=== PATIENT | female | born 1965 | race African-American/Black ===

== ENCOUNTER 2021-12-31 15:37 | Emergency (ER) | payer MEDICAID, OTHER ==
[~2021-12-31] VITALS: Ht 175.3 cm; Wt 73.0 kg
[2021-12-31 15:39] VITALS: BP 115/82
[2021-12-31] MEDS ORDERED: KETOROLAC 60MG/2ML VIAL IM ONE (16:15)
[2021-12-31] MEDS ORDERED: IBUP-2029 MT (17:10)
== END 2021-12-31 17:40 | disposition home or self-care (01) ==
LOC: ER 15:37
DX: M79.18 Myalgia, other site (principal); U07.1 COVID-19; J45.909 Unspecified asthma, uncomplicated; Z88.6 Allergy status to analgesic agent; Z87.891 Personal history of nicotine dependence
CPT/HCPCS: 71045; 96372; 99283; J1885

== ENCOUNTER 2022-05-14 16:11 | Emergency (ER) | payer OTHER ==
[~2022-05-14] VITALS: Ht 175.3 cm; Wt 72.0 kg
[~2022-05-14 16:11] MED LIST: IBUP-2029 MT
[2022-05-14] MEDS ORDERED: KETOROLAC 30MG/ML VIAL IV STA (19:45)
[2022-05-14] MEDS ORDERED: ONDANSETRON HCL 4MG/2ML INJ IV STA (19:45)
[2022-05-14] MEDS ORDERED: SODIUM CHLORIDE 0.9% 1,000 ML IV ONE (19:45)
[2022-05-14 20:15] LABS: BASOPHILS % 0.6 % (0.0-2.0); EOSINOPHILS % 0.5 % (0.0-5.0); HEMATOCRIT. 43.8 % (36.0-48.0); HEMOGLOBIN. 14.6 g/dL (12.0-16.0); LYMPHOCYTES % 27.8 % (20.0-50.0); MEAN CORPUSCULAR HEMOGLOBIN 28.4 pg (28.0-32.0); MEAN PLATELET VOLUME 8.8 fl (7.4-10.4); NEUTROPHILS % 63.1 % (40.0-76.0); PLATELET 227 x1000/uL (130-400); RED BLOOD CELL COUNT 5.16 mill/uL (4.2-5.4); RED CELL DISTRIBUTION WIDTH 15.3 % (11.6-14.6)
[2022-05-14 20:32] LABS: CHLORIDE 110 mEq/L (98-107)
[2022-05-14 21:57] LABS: CLARITY URINE CLEAR (CLEAR); COLOR URINE YELLOW (YELLOW); KETONES URINE 1+ (NEGATIVE); LEUKOCYTE ESTERASE URINE NEGATIVE (NEGATIVE); NITRITE URINE NEGATIVE (NEGATIVE); OCCULT BLOOD URINE NEGATIVE (NEGATIVE); PH URINE 5.5 (4.5-8.0); PROTEIN URINE NEGATIVE (NEGATIVE); SPECIFIC GRAVITY URINE 1.011 (1.005-1.030); UROBILINOGEN URINE 0.2 E.U./dL (0.2-1.0)
[2022-05-14] MEDS ORDERED: ONDA4TAB50 MT (22:50)
[2022-05-14] MEDS ORDERED: IBUP-2029 MT (22:50)
[2022-05-14 23:00] VITALS: BP 121/83
== END 2022-05-14 23:06 | disposition home or self-care (01) ==
LOC: ER 16:11
DX: K52.9 Noninfective gastroenteritis and colitis, unspecified (principal); J45.909 Unspecified asthma, uncomplicated; Z88.5 Allergy status to narcotic agent
CPT/HCPCS: 36415; 74176; 80053; 81003; 83690; 85025; 96361; 96374; 96375; 99284; J1885; J2405; J7030

== ENCOUNTER 2024-01-30 15:00 | Inpatient (IN) | payer OTHER ==
[~2024-01-30] VITALS: Ht 175.3 cm; Wt 78.5 kg
[~2024-01-30 15:00] MED LIST changes: +ONDA4TAB50 MT
[2024-01-30 15:40] LABS: BASOPHILS % 0.3 % (0.0-2.0); EOSINOPHILS % 0.2 % (0.0-5.0); HEMOGLOBIN. 14.3 g/dL (12.0-16.0); LYMPHOCYTES % 17.6 % (20.0-50.0); MEAN CORPUSCULAR HEMOGLOBIN 28.1 pg (28.0-32.0); MEAN CORPUSCULAR HGB CONC 32.5 g/dL (31.0-37.0); MEAN CORPUSCULAR VOLUME 86.5 fL (81.0-99.0); MEAN PLATELET VOLUME 7.8 fl (7.4-10.4); MONOCYTES % 8.1 % (2.0-8.0); NEUTROPHILS % 73.8 % (40.0-76.0); PLATELET 362 x1000/uL (130-400); RED BLOOD CELL COUNT 5.09 mill/uL (4.2-5.4); RED CELL DISTRIBUTION WIDTH 15.1 % (11.6-14.6); WHITE BLOOD COUNT 19.6 x1000/uL (4.5-11.0)
[2024-01-30] MEDS: SODIUM CHLORIDE 0.9% 1000ML BAG (SEPSIS BOLUS) IV ONE (15:41)
[2024-01-30] MEDS: METHYLPREDNISOLONE SOD SUCC 125MG/2ML (ACT-O-VIAL) IV ONE (15:44)
[2024-01-30] MEDS: CEFTRIAXONE 1GM/50ML 50 ML IV ONE (15:44)
[2024-01-30] MEDS: ONDANSETRON HCL 4MG/2ML INJ IV STA (15:44)
[2024-01-30] MEDS: ACETAMINOPHEN 325MG TABLET PO STA (15:44)
[2024-01-30 15:48] VITALS: RESP 30
[2024-01-30] MEDS: IPRATROPIUM/ALBUTEROL 0.5-3(2.5)MG/3ML NEB HHN ONE (15:48)
[2024-01-30 15:49] LABS: CARBON DIOXIDE 25 mEq/L (21-32); CHLORIDE 105 mEq/L (98-107); POTASSIUM 3.6 mEq/L (3.5-5.1); SODIUM 139 mEq/L (136-145)
[2024-01-30 15:53] LABS: CREATININE 0.7 mg/dL (0.6-1.0); GLUCOSE 107 mg/dL (70-105); UREA NITROGEN BLOOD 7 mg/dL (9-23)
[2024-01-30 15:54] LABS: LACTATE DEHYDROGENASE 263 IU/L (120-246); LACTIC ACID 2.8 mmol/L (0.4-2.0)
[2024-01-30 15:56] LABS: TROPONIN I HIGH SENSITIVITY 7 ng/L (3.0-34)
[2024-01-30] MEDS: AZITHROMYCIN 500MG/250ML 250 ML IV ONE (16:19)
[2024-01-30 16:39] LABS: INR 1.1; PROTHROMBIN TIME 11.8 sec (9.6-11.0)
[2024-01-30 17:11] LABS: BG BASE EXCESS -3.5 mmol/L (-2.0-2.0); BG CARBOXYHEMOGLOBIN 0.7 % (0.5-1.5); BG FRACTION INSPIRED OXYGEN 50; BG HCO3 ACT 20.6 mmol/L (22.0-26.0); BG OXYHEMOGLOBIN 98.3 % (94.0-97.0); BG PCO2 34.4 mmHg (35.0-45.0); BG PH 7.396 (7.350-7.450); BG PO2 134.7 mmHg (75.0-100.0); BG SAMPLE SITE RIGHT RADIAL; BG TOTAL HEMOGLOBIN 13.2 g/dL (12.0-18.0); BG TOTAL RESPIRATORY RATE 18 b/min; BG VENT MODE MASK - BIPAP
[2024-01-30 17:59] LABS: TROPONIN I HIGH SENSITIVITY 7 ng/L (3.0-34)
[2024-01-30 18:18] LABS: CLARITY URINE CLEAR (CLEAR); COLOR URINE YELLOW (YELLOW); GLUCOSE URINE NEGATIVE (NEGATIVE); KETONES URINE TRACE (NEGATIVE); LEUKOCYTE ESTERASE URINE NEGATIVE (NEGATIVE); NITRITE URINE NEGATIVE (NEGATIVE); OCCULT BLOOD URINE NEGATIVE (NEGATIVE); PH URINE 6.5 (4.5-8.0); PROTEIN URINE NEGATIVE (NEGATIVE); SPECIFIC GRAVITY URINE 1.007 (1.005-1.030); UROBILINOGEN URINE 0.2 E.U./dL (0.2-1.0)
[2024-01-30 18:29] VITALS: BP 126/79; PULSE 92; RESP 22; TEMP 36.8072
[2024-01-30] MEDS ORDERED: CLONIDINE 0.1MG TABLET PO PRN (18:30)
[2024-01-30] MEDS ORDERED: IPRATROPIUM/ALBUTEROL 0.5-3(2.5)MG/3ML NEB NEB PRN (18:30)
[2024-01-30] MEDS ORDERED: ACETAMINOPHEN 325MG TABLET PO PRN (18:30)
[2024-01-30] MEDS ORDERED: DOCUSATE SODIUM 100MG CAPSULE PO PRN (18:30)
[2024-01-30] MEDS ORDERED: GUAIFENESIN 200MG/10ML SUGAR FREE UDC PO PRN (18:30)
[2024-01-30] MEDS ORDERED: ONDANSETRON HCL 4MG/2ML INJ IV PRN (18:30)
[2024-01-30] MEDS ORDERED: NITROGLYCERIN 0.4MG TABLET SL SL PRN (18:30)
[2024-01-30] MEDS ORDERED: MAGNESIUM/ALUMINUM HYDROXIDE/SIMETHICONE 30ML UDC PO PRN (18:30)
[2024-01-30 18:34] VITALS: BP 126/79; PULSE 92; RESP 22; TEMP 36.83628; O2SAT 99
[2024-01-30 20:00] VITALS: BP 118/88; PULSE 73; RESP 21; TEMP 36.22512; O2SAT 100
[2024-01-30 21:48] VITALS: RESP 20
[2024-01-30] MEDS: IPRATROPIUM/ALBUTEROL 0.5-3(2.5)MG/3ML NEB HHN SCH (21:48)
[2024-01-30] MEDS: ASCORBIC ACID 500 MG TABLET PO SCH (21:50)
[2024-01-30] MEDS: ENOXAPARIN 40MG/0.4ML SYR SUBCUT SCH (21:50)
[2024-01-30] MEDS: GUAIFENESIN 600MG ER TABLET PO SCH (21:50)
[2024-01-30] MEDS: METHYLPREDNISOLONE SOD SUCC 125MG/2ML (ACT-O-VIAL) IV SCH (21:53)
[2024-01-30 22:00] VITALS: BP 126/82; PULSE 73; RESP 25; O2SAT 100
[2024-01-30] MEDS: ZOLPIDEM TARTRATE 5MG TABLET PO PRN (22:04)
[2024-01-30 22:11] LABS: IRON 22 ug/dL (50-170)
[2024-01-30 22:12] LABS: TRIGLYCERIDE 89 mg/dL (0-150)
[2024-01-30 22:13] LABS: LDL CHOLESTEROL 82 mg/dL (5-100); TROPONIN I HIGH SENSITIVITY 10 ng/L (3.0-34)
[2024-01-30 22:14] LABS: CHOLESTEROL 156 mg/dL (<200); HDL CHOLESTEROL 60 mg/dL (>65); TOTAL IRON BINDING CAPACITY 213 ug/dl (250-425)
[2024-01-30 22:17] LABS: T4 FREE 1.49 ng/dL (0.89-1.76)
[2024-01-30 22:18] LABS: THYROID STIMULATING HORMONE 0.45 uIU/mL (0.55-4.78)
[2024-01-30 22:19] LABS: FOLIC ACID (FOLATE) SERUM 16.16 ng/mL (>5.38); VITAMIN B12 SERUM 784 pg/mL (211-911)
[2024-01-31] VITALS (18 sets, daily range): BP systolic 93–143; BP diastolic 48–99; PULSE 67–100; RESP 16–33; TEMP 36.22512–36.72516; O2SAT 91–100
[2024-01-31 01:28] LABS: CREATINE KINASE MB FRACTION 1.7 ng/mL (0.5-3.6)
[2024-01-31 06:20] LABS: CHLORIDE 107 mEq/L (98-107); SODIUM 138 mEq/L (136-145)
[2024-01-31] MEDS ORDERED: IOHEXOL-350 100 ML BOTTLE ONE (06:20)
[2024-01-31 06:22] LABS: CREATINE KINASE MB FRACTION 1.6 ng/mL (0.5-3.6)
[2024-01-31 06:24] LABS: CARBON DIOXIDE 23 mEq/L (21-32)
[2024-01-31 06:25] LABS: CALCIUM 8.9 mg/dL (8.7-10.4)
[2024-01-31 06:29] LABS: *AMPHETAMINES SCREEN URINE NEGATIVE (NEGATIVE)
[2024-01-31 06:29] LABS: ALANINE AMINOTRANSFERASE < 7 IU/L (10-49)
[2024-01-31 06:30] LABS: *BARBITURATES SCREEN URINE NEGATIVE (NEGATIVE); *BENZODIAZEPINES SCREEN URINE NEGATIVE (NEGATIVE); *COCAINE SCREEN URINE NEGATIVE (NEGATIVE); CANNABINOID URINE SCREEN PRESUMPTIVE POSITIVE (NEGATIVE); ECSTASY MDMA SCREEN URINE NEGATIVE (NEGATIVE); METHADONE URINE SCREEN NEGATIVE (NEGATIVE); OPIATES URINE SCREEN NEGATIVE (NEGATIVE); PHENCYCLIDINE URINE SCREEN NEGATIVE (NEGATIVE)
[2024-01-31 06:30] LABS: CREATININE 0.6 mg/dL (0.6-1.0); GLUCOSE 164 mg/dL (70-105); UREA NITROGEN BLOOD 6 mg/dL (9-23)
[2024-01-31 06:31] LABS: ASPARTATE AMINOTRANSFERASE 11 IU/L (<34); HEMATOCRIT. 38.9 % (36.0-48.0); HEMOGLOBIN. 12.4 g/dL (12.0-16.0); MEAN CORPUSCULAR HEMOGLOBIN 27.7 pg (28.0-32.0); MEAN CORPUSCULAR VOLUME 86.5 fL (81.0-99.0); MEAN PLATELET VOLUME 7.9 fl (7.4-10.4); PLATELET 325 x1000/uL (130-400); RED BLOOD CELL COUNT 4.49 mill/uL (4.2-5.4); RED CELL DISTRIBUTION WIDTH 14.8 % (11.6-14.6); WHITE BLOOD COUNT 12.8 x1000/uL (4.5-11.0)
[2024-01-31 06:32] LABS: ALBUMIN 3.8 g/dL (3.2-4.8); BILIRUBIN TOTAL 0.3 mg/dL (0.1-1.0); PHOSPHORUS 2.9 mg/dL (2.5-4.9); PROTEIN TOTAL 6.6 g/dL (6.0-8.3)
[2024-01-31 07:05] LABS: DIFFERENTIAL COMMENT 1
[2024-01-31] MEDS: ASPIRIN 81MG EC TABLET PO SCH (09:00)
[2024-01-31] MEDS: ZINC SULFATE 220 MG ( 50 ) CAPSULE PO SCH (09:00)
[2024-01-31] MEDS: KETOROLAC 15MG/ML VIAL IV PRN (11:43)
[2024-01-31] MEDS ORDERED: SODIUM CHLORIDE 10% FOR INH 15ML NEB INH NR (12:00)
[2024-01-31 12:53] LABS: LACTIC ACID 3.1 mmol/L (0.4-2.0)
[2024-01-31] MEDS: CEFTRIAXONE 1GM/50ML 50 ML IV SCH (15:00)
[2024-01-31 16:11] LABS: PLATELET ESTIMATE NORMAL
[2024-01-31] MEDS: AZITHROMYCIN 500MG/250ML 250 ML IV SCH (16:21)
[2024-02-01] VITALS (18 sets, daily range): BP systolic 111–140; BP diastolic 67–129; PULSE 70–102; RESP 16–36; TEMP 36.28068–36.9474; O2SAT 92–100
[2024-02-01] MEDS: ACETAMINOPHEN 325MG TABLET PO PRN (10:28)
[2024-02-02] VITALS (18 sets, daily range): BP systolic 99–126; BP diastolic 67–98; PULSE 68–109; RESP 16–34; TEMP 36.28068–36.89184; O2SAT 61–100
[2024-02-02 10:54] LABS: HEMATOCRIT 40.5 % (36.0-48.0); MEAN CORPUSCULAR HEMOGLOBIN 27.6 pg (28.0-32.0); MEAN CORPUSCULAR HGB CONC 32.1 g/dL (31.0-37.0); MEAN CORPUSCULAR VOLUME 85.9 fL (81.0-99.0); PLATELET 346 x1000/uL (130-400); RED BLOOD CELL COUNT 4.72 mill/uL (4.2-5.4); RED CELL DISTRIBUTION WIDTH 15.2 % (11.6-14.6); WHITE BLOOD COUNT 20.2 x1000/uL (4.5-11.0)
[2024-02-02 11:03] LABS: PROTHROMBIN TIME 11.6 sec (9.6-11.0)
[2024-02-02 14:10] LABS: BODY FLUID MONOCYTES 10 %
[2024-02-02 14:15] LABS: LACTATE DEHYDROGENASE 248 IU/L (120-246)
[2024-02-02 14:16] LABS: AMYLASE 60 IU/L (30-118)
[2024-02-02 14:24] LABS: BODY FLUID RBC 8625 /cu mm (0-2000); BODY FLUID WBC 4075 /cu mm (0-200)
[2024-02-02 16:02] LABS: AMYLASE BODY FLUID 63 IU/L
[2024-02-03] VITALS (27 sets, daily range): BP systolic 92–130; BP diastolic 62–103; PULSE 66–98; RESP 17–30; TEMP 35.72508–36.6696; O2SAT 94–100
[2024-02-03 17:10] LABS: BG BASE EXCESS 0.4 mmol/L (-2.0-3.0); BG CARBOXYHEMOGLOBIN 1.2 % (0.5-1.5); BG DEOXYHEMOGLOBIN 1.5 % (0.0-5.0); BG FRACTION INSPIRED OXYGEN 36; BG HCO3 ACT 23.7 mmol/L (21.0-28.0); BG METHEMOGLOBIN 0.3 % (0.5-1.5); BG OXYGEN SATURATION 98.5 % (94.0-98.0); BG PCO2 34.1 mmHg (32.0-45.0); BG PO2 104.4 mmHg (83.0-108.0); BG SAMPLE SITE RIGHT FEMORAL; BG TOTAL HEMOGLOBIN 13.6 g/dL (12.0-16.0); BG VENT MODE NASAL CANNULA
[2024-02-03] MEDS: METHYLPREDNISOLONE SOD SUCC 40MG/ML (ACT-O-VIAL) IV SCH (20:18)
[2024-02-04] VITALS (11 sets, daily range): BP systolic 119–121; BP diastolic 86–107; PULSE 68–86; RESP 18–21; TEMP 35.89176–36.33624; O2SAT 94–100
[2024-02-04] MEDS ORDERED: ALBU6.7H15 INH (10:47)
[2024-02-04] MEDS ORDERED: TIOT18CA3 INH (10:47)
[2024-02-04] MEDS ORDERED: P20 MT (10:47)
[2024-02-04] MEDS ORDERED: AZIT500T8 MT (10:49)
[2024-02-18] MEDS ORDERED: P20 MT (13:16)
[2024-02-18] MEDS ORDERED: FLUT1DIS6 INH (13:16)
[2024-02-18] MEDS ORDERED: LEVO-65 MT (13:16)
== END 2024-02-04 15:31 | disposition home health service (06) | DRG 720 ==
LOC: ER 15:00 → 5EST 16:34 → EDBEDREQ 16:41 → EDBEDREQTM 16:41
PROVIDERS: ADMIT Internal Medicine; ATTEND Internal Medicine
PROC: 5A09357 Assistance with Respiratory Ventilation, Less than 24 Consecutive Hours, Continuous Positive Airway Pressure (ICD-10-PCS; 2024-01-30)
PROC: 5A09357 Assistance with Respiratory Ventilation, Less than 24 Consecutive Hours, Continuous Positive Airway Pressure (ICD-10-PCS; 2024-01-31)
PROC: 5A09357 Assistance with Respiratory Ventilation, Less than 24 Consecutive Hours, Continuous Positive Airway Pressure (ICD-10-PCS; 2024-02-01)
PROC: 0W9B3ZZ Drainage of Left Pleural Cavity, Percutaneous Approach (ICD-10-PCS; principal; 2024-02-02)
PROC: 5A09357 Assistance with Respiratory Ventilation, Less than 24 Consecutive Hours, Continuous Positive Airway Pressure (ICD-10-PCS; 2024-02-03)
DX: A41.9 Sepsis, unspecified organism (principal); J96.01 Acute respiratory failure with hypoxia; E87.4 Mixed disorder of acid-base balance; J44.1 Chronic obstructive pulmonary disease with (acute) exacerbation; J45.901 Unspecified asthma with (acute) exacerbation; J91.8 Pleural effusion in other conditions classified elsewhere; Z20.822 Contact with and (suspected) exposure to COVID-19; J43.9 Emphysema, unspecified; E03.9 Hypothyroidism, unspecified; R07.81 Pleurodynia; F12.10 Cannabis abuse, uncomplicated; F17.200 Nicotine dependence, unspecified, uncomplicated; Z87.01 Personal history of pneumonia (recurrent); Z87.442 Personal history of urinary calculi; Z79.899 Other long term (current) drug therapy
CPT/HCPCS: 32555; 36415; 36600; 71045; 71275; 80048; 80053; 80061; 80305; 81003; 82150; 82375; 82550; 82553; 82607; 82746; 82805; 83036; 83540; 83550; 83605; 83615; 83735; 83880; 84100; 84145; 84439; 84443; 84484; 85025; 85027; 87426; 87804; 93005; 93306; 93970; 94640; 94660; 97161; 97166; 97535; 99291; J0456; J0696; J1650; J1885; J2405; J2919; J2920; J7030; J7131; Q9967

== ENCOUNTER 2024-02-19 10:43 | Inpatient (IN) | payer OTHER ==
[2024-02-19] VITALS (22 sets, daily range): BP systolic 112–147; BP diastolic 75–96; PULSE 98–110; RESP 22–31; TEMP 36.33624–37.0852
[~2024-02-19] VITALS: Ht 175.3 cm; Wt 64.5 kg
[~2024-02-19 10:43] MED LIST changes: +ALBU6.7H15 INH; +FLUT1DIS6 INH; -IBUP-2029 MT; +LEVO-65 MT; -ONDA4TAB50 MT; +P20 MT; +TIOT18CA3 INH
[2024-02-19] MEDS: SODIUM CHLORIDE 0.9% 1000ML BAG (SEPSIS BOLUS) IV ONE (11:27)
[2024-02-19] MEDS: CEFTRIAXONE 2GM/50ML 50 ML IV ONE (11:39)
[2024-02-19] MEDS: MORPHINE SULFATE 4 MG/ML INJ (FOR IV/IM USE) IV STA ×2 (12:02→13:32)
[2024-02-19] MEDS: ONDANSETRON HCL 4MG/2ML INJ IV STA (12:02)
[2024-02-19 12:31] LABS: INR 1.7; PROTHROMBIN TIME 18.2 sec (9.6-11.0)
[2024-02-19] MEDS: IOHEXOL-300 100 ML BOTTLE ONE (13:40)
[2024-02-19] MEDS ORDERED: PIPERACILLIN/TAZO 3.375G/50ML 50 ML IV SCH (14:00)
[2024-02-19] MEDS ORDERED: IPRATROPIUM/ALBUTEROL 0.5-3(2.5)MG/3ML NEB HHN PRN ×2 (14:15→22:00)
[2024-02-19] MEDS ORDERED: ONDANSETRON HCL 4MG/2ML INJ IV PRN ×2 (14:15→22:00)
[2024-02-19] MEDS ORDERED: NALOXONE HCL 0.4MG/ML VIAL IV PRN (14:45)
[2024-02-19] MEDS: PANTOPRAZOLE SODIUM 40 MG/VIAL IV SCH (14:46)
[2024-02-19] MEDS: SODIUM CHLORIDE 0.9% 1,000 ML IV SCH (14:47)
[2024-02-19] MEDS: PIPERACILLIN/TAZO 3.375G/50ML IV NR (14:47)
[2024-02-19 15:31] LABS: HEMATOCRIT. 39.8 % (36.0-48.0); HEMOGLOBIN. 12.6 g/dL (12.0-16.0); MEAN CORPUSCULAR HEMOGLOBIN 27.6 pg (28.0-32.0); MEAN CORPUSCULAR HGB CONC 31.6 g/dL (31.0-37.0); MEAN CORPUSCULAR VOLUME 87.4 fL (81.0-99.0); MEAN PLATELET VOLUME 7.8 fl (7.4-10.4); PLATELET 333 x1000/uL (130-400); RED BLOOD CELL COUNT 4.55 mill/uL (4.2-5.4); RED CELL DISTRIBUTION WIDTH 16.4 % (11.6-14.6); WHITE BLOOD COUNT 17.5 x1000/uL (4.5-11.0)
[2024-02-19 15:32] LABS: CHLORIDE 109 mEq/L (98-107); POTASSIUM 3.6 mEq/L (3.5-5.1); SODIUM 139 mEq/L (136-145)
[2024-02-19 15:33] LABS: CALCIUM 9.1 mg/dL (8.7-10.4); CARBON DIOXIDE 23 mEq/L (21-32)
[2024-02-19] MEDS: MORPHINE SULFATE 2 MG/ML INJ (NOT FOR IM USE) IV PRN (15:33)
[2024-02-19 15:34] LABS: DIFFERENTIAL COMMENT 1
[2024-02-19 15:38] LABS: CREATININE 0.5 mg/dL (0.6-1.0); GLUCOSE 161 mg/dL (70-105); UREA NITROGEN BLOOD 10 mg/dL (9-23)
[2024-02-19 15:40] LABS: ALANINE AMINOTRANSFERASE 7 IU/L (10-49); ALBUMIN 3.7 g/dL (3.2-4.8); ASPARTATE AMINOTRANSFERASE 10 IU/L (<34); BILIRUBIN DIRECT 0.2 mg/dL (<=3.0)
[2024-02-19 15:41] LABS: BILIRUBIN TOTAL 0.5 mg/dL (0.1-1.0); PROTEIN TOTAL 5.8 g/dL (6.0-8.3)
[2024-02-19 15:43] LABS: TROPONIN I HIGH SENSITIVITY < 4 ng/L (3.0-34)
[2024-02-19] MEDS ORDERED: ROCURONIUM BROMIDE 10MG/ML VIAL 5ML IV ONE (16:48)
[2024-02-19] MEDS ORDERED: PROPOFOL 200MG/20ML VIAL IV ONE (16:49)
[2024-02-19] MEDS ORDERED: FENTANYL CITRATE/PF 50MCG/ML 2ML VIAL ONE (16:49)
[2024-02-19] MEDS ORDERED: MIDAZOLAM HCL 2 MG/2 ML VIAL ONE (16:51)
[2024-02-19] MEDS ORDERED: HYDROMORPHONE HCL/PF 1MG/ML INJ IV NR (17:00)
[2024-02-19 17:05] LABS: PLATELET ESTIMATE NORMAL
[2024-02-19 17:06] LABS: ANISOCYTOSIS 1+
[2024-02-19] MEDS ORDERED: SUGAMMADEX SODIUM 200MG/2ML VIAL IV ONE (17:28)
[2024-02-19] MEDS: SUCRALFATE 1G TABLET PO SCH (21:00)
[2024-02-19] MEDS ORDERED: DEXT 5%/0.45% NACL 1000ML 1,000 ML IV SCH (22:00)
[2024-02-19] MEDS: PIPERACILLIN/TAZO 3.375G/50ML 50 ML IV SCH (22:10)
[2024-02-19] MEDS: DEXT 5%/0.45% NACL KCL 20MEQ/L 1,000 ML IV SCH (22:26)
[2024-02-19 23:34] LABS: CLARITY URINE CLEAR (CLEAR); COLOR URINE ORANGE (YELLOW); GLUCOSE URINE NEGATIVE (NEGATIVE); KETONES URINE NEGATIVE (NEGATIVE); LEUKOCYTE ESTERASE URINE NEGATIVE (NEGATIVE); NITRITE URINE NEGATIVE (NEGATIVE); OCCULT BLOOD URINE NEGATIVE (NEGATIVE); PH URINE 5.5 (4.5-8.0); PROTEIN URINE TRACE (NEGATIVE); SPECIFIC GRAVITY URINE 1.028 (1.005-1.030); UROBILINOGEN URINE 0.2 E.U./dL (0.2-1.0)
[2024-02-19 23:56] LABS: TROPONIN I HIGH SENSITIVITY 5 ng/L (3.0-34)
[2024-02-20] VITALS (43 sets, daily range): BP systolic 103–147; BP diastolic 74–93; PULSE 104–119; RESP 23–33; TEMP 36.33624–36.89184; O2SAT 95–100
[2024-02-20] LABS: CREATINE KINASE MB FRACTION < 0.5 ng/mL (0.5-3.6)
[2024-02-20 00:01] LABS: CREATINE KINASE 71 IU/L (34-145); PHOSPHORUS 3.3 mg/dL (2.5-4.9)
[2024-02-20] MEDS: ONDANSETRON HCL 4MG/2ML INJ IV PRN (01:04)
[2024-02-20 01:51] LABS: HEMATOCRIT 43.9 % (36.0-48.0); HEMOGLOBIN 13.9 g/dL (12.0-16.0)
[2024-02-20 04:11] LABS: BACTERIA URINE NONE SEEN; RBC URINE 0-2 /hpf (0-2); SQUAMOUS EPITHELIAL CELL URINE FEW /lpf (RARE/1+)
[2024-02-20 05:14] LABS: HEMATOCRIT. 40.2 % (36.0-48.0); HEMOGLOBIN. 12.7 g/dL (12.0-16.0); MEAN CORPUSCULAR HEMOGLOBIN 27.6 pg (28.0-32.0); MEAN CORPUSCULAR HGB CONC 31.5 g/dL (31.0-37.0); MEAN CORPUSCULAR VOLUME 87.5 fL (81.0-99.0); PLATELET 280 x1000/uL (130-400); RED BLOOD CELL COUNT 4.59 mill/uL (4.2-5.4); RED CELL DISTRIBUTION WIDTH 16.3 % (11.6-14.6); WHITE BLOOD COUNT 17.7 x1000/uL (4.5-11.0)
[2024-02-20 05:18] LABS: CALCIUM 9.2 mg/dL (8.7-10.4); CARBON DIOXIDE 24 mEq/L (21-32); CHLORIDE 108 mEq/L (98-107); POTASSIUM 3.6 mEq/L (3.5-5.1); SODIUM 139 mEq/L (136-145)
[2024-02-20 05:22] LABS: CREATINE KINASE MB FRACTION < 0.5 ng/mL (0.5-3.6); TROPONIN I HIGH SENSITIVITY 7 ng/L (3.0-34)
[2024-02-20 05:23] LABS: CREATININE 0.6 mg/dL (0.6-1.0); GLUCOSE 134 mg/dL (70-105); TRIGLYCERIDE 57 mg/dL (0-150); UREA NITROGEN BLOOD 6 mg/dL (9-23)
[2024-02-20 05:24] LABS: LDL CHOLESTEROL 43 mg/dL (5-100)
[2024-02-20 05:25] LABS: CHOLESTEROL 128 mg/dL (<200); HDL CHOLESTEROL 61 mg/dL (>65)
[2024-02-20 05:26] LABS: CREATINE KINASE 187 IU/L (34-145)
[2024-02-20 06:41] LABS: DIFFERENTIAL COMMENT 1
[2024-02-20] MEDS: SODIUM CHLORIDE 0.9% 1,000 ML IV ONE (09:01)
[2024-02-20] MEDS: ENOXAPARIN 40MG/0.4ML SYR SUBCUT SCH (09:02)
[2024-02-20 10:52] LABS: ANISOCYTOSIS 1+; PLATELET ESTIMATE NORMAL
[2024-02-20] MEDS: MAGNESIUM 2 G PREMIX 50 ML IV NR (11:46)
[2024-02-20] MEDS: MORPHINE SULFATE 2 MG/ML INJ (NOT FOR IM USE) IV PRN (12:48)
[2024-02-21] VITALS (8 sets, daily range): BP systolic 101–132; BP diastolic 72–95; PULSE 101–119; RESP 18–26; TEMP 36.00288–38.72532; O2SAT 92–100
[2024-02-21 09:01] LABS: HEMATOCRIT. 38.6 % (36.0-48.0); HEMOGLOBIN. 12.7 g/dL (12.0-16.0); MEAN CORPUSCULAR HEMOGLOBIN 28.4 pg (28.0-32.0); MEAN CORPUSCULAR HGB CONC 32.9 g/dL (31.0-37.0); MEAN CORPUSCULAR VOLUME 86.5 fL (81.0-99.0); MEAN PLATELET VOLUME 8.1 fl (7.4-10.4); PLATELET 283 x1000/uL (130-400); RED BLOOD CELL COUNT 4.46 mill/uL (4.2-5.4)
[2024-02-21 09:03] LABS: DIFFERENTIAL COMMENT 1
[2024-02-21 09:04] LABS: CHLORIDE 105 mEq/L (98-107); POTASSIUM 3.2 mEq/L (3.5-5.1); SODIUM 136 mEq/L (136-145)
[2024-02-21 09:05] LABS: CARBON DIOXIDE 26 mEq/L (21-32)
[2024-02-21 09:06] LABS: CALCIUM 9.3 mg/dL (8.7-10.4)
[2024-02-21 09:10] LABS: CREATININE 0.6 mg/dL (0.6-1.0); GLUCOSE 102 mg/dL (70-105)
[2024-02-21 09:13] LABS: PHOSPHORUS 2.2 mg/dL (2.5-4.9)
[2024-02-21] MEDS: MORPHINE SULFATE 4 MG/ML INJ (FOR IV/IM USE) IV PRN (09:17)
[2024-02-21 09:30] LABS: UREA NITROGEN BLOOD < 5 mg/dL (9-23)
[2024-02-21] MEDS: THIAMINE HCL 200 MG in SODIUM CHLORIDE 0.9% 98 ML IV SCH (13:33)
[2024-02-21] MEDS: IPRATROPIUM/ALBUTEROL 0.5-3(2.5)MG/3ML NEB HHN SCH (15:46)
[2024-02-21 18:15] LABS: PLATELET ESTIMATE NORMAL
[2024-02-21] MEDS: KCL 20MEQ/100ML PREMIX 100 ML IV NR (18:32)
[2024-02-21] MEDS: SODIUM PHOSPHATE 10 MMOL in DEXT 5% WATER 246.6667 ML IV SCH (18:42)
[2024-02-22] VITALS (10 sets, daily range): BP systolic 101–121; BP diastolic 55–79; PULSE 80–125; RESP 18–22; TEMP 35.66952–39.00312; O2SAT 96–100
[2024-02-22 06:46] LABS: BASOPHILS % 0.2 % (0.0-2.0); EOSINOPHILS % 0.5 % (0.0-5.0); HEMATOCRIT. 36.7 % (36.0-48.0); HEMOGLOBIN. 11.9 g/dL (12.0-16.0); LYMPHOCYTES % 9.7 % (20.0-50.0); MEAN CORPUSCULAR HEMOGLOBIN 27.9 pg (28.0-32.0); MEAN CORPUSCULAR HGB CONC 32.4 g/dL (31.0-37.0); MEAN CORPUSCULAR VOLUME 86.3 fL (81.0-99.0); MEAN PLATELET VOLUME 7.9 fl (7.4-10.4); MONOCYTES % 9.8 % (2.0-8.0); NEUTROPHILS % 79.8 % (40.0-76.0); PLATELET 301 x1000/uL (130-400); RED BLOOD CELL COUNT 4.25 mill/uL (4.2-5.4); RED CELL DISTRIBUTION WIDTH 15.9 % (11.6-14.6)
[2024-02-22 07:00] LABS: CALCIUM 9.1 mg/dL (8.7-10.4); CARBON DIOXIDE 27 mEq/L (21-32); CHLORIDE 104 mEq/L (98-107); POTASSIUM 3.1 mEq/L (3.5-5.1); SODIUM 137 mEq/L (136-145)
[2024-02-22 07:05] LABS: CREATININE 0.6 mg/dL (0.6-1.0); GLUCOSE 122 mg/dL (70-105)
[2024-02-22 07:06] LABS: UREA NITROGEN BLOOD 7 mg/dL (9-23)
[2024-02-22 07:08] LABS: PHOSPHORUS 2.8 mg/dL (2.5-4.9)
[2024-02-22] MEDS: POTASSIUM CHLORIDE 40 MEQ in DEXT 5% WATER 230 ML IV NR (11:55)
[2024-02-22] MEDS: MAGNESIUM 2 G PREMIX 50 ML IV NR (11:55)
[2024-02-23] VITALS (9 sets, daily range): BP systolic 110–125; BP diastolic 72–87; PULSE 97–119; RESP 18–24; TEMP 36.22512–38.00304; O2SAT 89–99
[2024-02-23 12:07] LABS: PROTEIN BODY FLUID 2.1 gm/dL
[2024-02-23 13:13] LABS: BODY FLUID MONOCYTES 6 %
[2024-02-23 13:44] LABS: BODY FLUID WBC 1125 /cu mm (0-200)
[2024-02-23 13:45] LABS: BODY FLUID RBC 17925 /cu mm (0-2000)
[2024-02-23] MEDS: ACETAMINOPHEN 325MG TABLET PO PRN (21:09)
[2024-02-24] VITALS (11 sets, daily range): BP systolic 119–134; BP diastolic 78–92; PULSE 88–123; RESP 14–24; TEMP 36.05844–37.28076; O2SAT 95–100
[2024-02-24 07:04] LABS: BASOPHILS % 0.2 % (0.0-2.0); CARBON DIOXIDE 24 mEq/L (21-32); CHLORIDE 106 mEq/L (98-107); EOSINOPHILS % 0.7 % (0.0-5.0); HEMATOCRIT. 37.2 % (36.0-48.0); HEMOGLOBIN. 11.9 g/dL (12.0-16.0); LYMPHOCYTES % 12.5 % (20.0-50.0); MEAN CORPUSCULAR HEMOGLOBIN 27.7 pg (28.0-32.0); MEAN CORPUSCULAR HGB CONC 32.1 g/dL (31.0-37.0); MEAN CORPUSCULAR VOLUME 86.5 fL (81.0-99.0); MEAN PLATELET VOLUME 8.1 fl (7.4-10.4); MONOCYTES % 14.8 % (2.0-8.0); NEUTROPHILS % 71.8 % (40.0-76.0); PLATELET 246 x1000/uL (130-400); SODIUM 137 mEq/L (136-145); WHITE BLOOD COUNT 16.7 x1000/uL (4.5-11.0)
[2024-02-24 07:10] LABS: CREATININE 0.6 mg/dL (0.6-1.0); GLUCOSE 162 mg/dL (70-105)
[2024-02-24 07:12] LABS: PHOSPHORUS 2.9 mg/dL (2.5-4.9)
[2024-02-24 07:51] LABS: UREA NITROGEN BLOOD < 5 mg/dL (9-23)
[2024-02-24] MEDS: FAMOTIDINE 20MG/2ML VIAL IV SCH (08:37)
[2024-02-25] VITALS (8 sets, daily range): BP systolic 109–132; BP diastolic 60–88; PULSE 58–118; RESP 16–18; TEMP 36.28068–37.2252; O2SAT 95–100
[2024-02-25] MEDS: KETOROLAC 30MG/ML VIAL IV NR (10:09)
[2024-02-25] MEDS: KETOROLAC 30MG/ML VIAL IV PRN (17:38)
[2024-02-25 18:28] LABS: INR 1.2; PARTIAL THROMBOPLASTIN TIME 28.3 sec (23.4-31.0); PROTHROMBIN TIME 13.5 sec (9.6-11.0)
[2024-02-25 19:59] LABS: ALBUMIN 3.5 g/dL (3.2-4.8); PROTEIN TOTAL 5.9 g/dL (6.0-8.3)
[2024-02-26] VITALS (9 sets, daily range): BP systolic 119–135; BP diastolic 82–93; PULSE 83–110; RESP 16–19; TEMP 36.16956–37.39188; O2SAT 96–99
[2024-02-26 10:07] LABS: INR 1.1; PROTHROMBIN TIME 12.4 sec (9.6-11.0)
[2024-02-26] MEDS: MAGNESIUM 1 G PREMIX 100 ML IV NR (14:40)
[2024-02-27] VITALS (7 sets, daily range): BP systolic 100–132; BP diastolic 18–89; PULSE 61–101; RESP 18–19; TEMP 35.89176–37.11408; O2SAT 98–100
[2024-02-27 07:13] LABS: CARBON DIOXIDE 23 mEq/L (21-32)
[2024-02-27 07:14] LABS: CALCIUM 9.5 mg/dL (8.7-10.4)
[2024-02-27 07:18] LABS: CREATININE 0.5 mg/dL (0.6-1.0)
[2024-02-27 07:19] LABS: GLUCOSE 93 mg/dL (70-105)
[2024-02-27 07:20] LABS: UREA NITROGEN BLOOD < 5 mg/dL (9-23)
[2024-02-27 07:21] LABS: BASOPHILS % 0.2 % (0.0-2.0); CHLORIDE 108 mEq/L (98-107); EOSINOPHILS % 0.7 % (0.0-5.0); HEMATOCRIT. 38.6 % (36.0-48.0); HEMOGLOBIN. 12.3 g/dL (12.0-16.0); LYMPHOCYTES % 10.1 % (20.0-50.0); MEAN CORPUSCULAR HEMOGLOBIN 27.4 pg (28.0-32.0); MEAN CORPUSCULAR HGB CONC 31.9 g/dL (31.0-37.0); MEAN CORPUSCULAR VOLUME 85.9 fL (81.0-99.0); MEAN PLATELET VOLUME 8.3 fl (7.4-10.4); MONOCYTES % 8.2 % (2.0-8.0); NEUTROPHILS % 80.8 % (40.0-76.0); PHOSPHORUS 3.4 mg/dL (2.5-4.9); PLATELET 296 x1000/uL (130-400); POTASSIUM 3.8 mEq/L (3.5-5.1); RED BLOOD CELL COUNT 4.49 mill/uL (4.2-5.4); RED CELL DISTRIBUTION WIDTH 16.2 % (11.6-14.6); SODIUM 140 mEq/L (136-145); WHITE BLOOD COUNT 14.4 x1000/uL (4.5-11.0)
[2024-02-27] MEDS ORDERED: NALOXONE HCL 0.4MG/ML VIAL IV PRN (15:00)
[2024-02-27] MEDS: HYDROCODONE/ACETAMINOPHEN 5/325MG TABLET PO PRN (19:51)
[2024-02-27] MEDS: FAMOTIDINE 20MG TABLET PO SCH (22:16)
[2024-02-28] VITALS (7 sets, daily range): BP systolic 91–109; BP diastolic 18–78; PULSE 88–119; RESP 16–19; TEMP 36.05844–37.28076; O2SAT 93–100
[2024-02-28] MEDS ORDERED: ALBUTEROL 6.7GM HFA INHALER INH SCH (15:30)
[2024-02-28] MEDS: IPRATROPIUM/ALBUTEROL 0.5-3(2.5)MG/3ML NEB HHN SCH (20:55)
[2024-02-28] MEDS ORDERED: MEDICATION NOT ON FORMULARY EA (Fluticasone/Salmeterol (Advair 500-50) 1 PUFF) INH SCH (21:00)
[2024-02-28 21:30] LABS: HEMATOCRIT 38.2 % (36.0-48.0); HEMOGLOBIN 11.9 g/dL (12.0-16.0); MEAN CORPUSCULAR HEMOGLOBIN 27.2 pg (28.0-32.0); MEAN CORPUSCULAR HGB CONC 31.3 g/dL (31.0-37.0); MEAN CORPUSCULAR VOLUME 86.9 fL (81.0-99.0); PLATELET 351 x1000/uL (130-400); RED BLOOD CELL COUNT 4.39 mill/uL (4.2-5.4); RED CELL DISTRIBUTION WIDTH 16.4 % (11.6-14.6); WHITE BLOOD COUNT 13.8 x1000/uL (4.5-11.0)
[2024-02-28 21:37] LABS: CHLORIDE 107 mEq/L (98-107); POTASSIUM 3.7 mEq/L (3.5-5.1); SODIUM 139 mEq/L (136-145)
[2024-02-28 21:38] LABS: CALCIUM 9.4 mg/dL (8.7-10.4); CARBON DIOXIDE 23 mEq/L (21-32)
[2024-02-28 21:43] LABS: CREATININE 0.5 mg/dL (0.6-1.0); GLUCOSE 72 mg/dL (70-105); UREA NITROGEN BLOOD 7 mg/dL (9-23)
[2024-02-28 21:45] LABS: PHOSPHORUS 2.7 mg/dL (2.5-4.9)
[2024-02-29] VITALS (10 sets, daily range): BP systolic 104–121; BP diastolic 68–82; PULSE 71–97; RESP 16–19; TEMP 36.22512–37.16964; O2SAT 92–100
[2024-02-29] MEDS: SODIUM BICARBONATE 4% 2.4MEQ/5ML VIAL IV ONE ×2 (08:00→09:00)
[2024-02-29 08:02] LABS: CHLORIDE 107 mEq/L (98-107); HEMATOCRIT 38.2 % (36.0-48.0); HEMOGLOBIN 12.2 g/dL (12.0-16.0); MEAN CORPUSCULAR HEMOGLOBIN 27.6 pg (28.0-32.0); MEAN CORPUSCULAR HGB CONC 31.9 g/dL (31.0-37.0); MEAN CORPUSCULAR VOLUME 86.6 fL (81.0-99.0); PLATELET 359 x1000/uL (130-400); POTASSIUM 3.8 mEq/L (3.5-5.1); RED BLOOD CELL COUNT 4.41 mill/uL (4.2-5.4); RED CELL DISTRIBUTION WIDTH 16.5 % (11.6-14.6); SODIUM 139 mEq/L (136-145); WHITE BLOOD COUNT 14.5 x1000/uL (4.5-11.0)
[2024-02-29 08:04] LABS: CALCIUM 9.2 mg/dL (8.7-10.4); CARBON DIOXIDE 24 mEq/L (21-32)
[2024-02-29 08:09] LABS: CREATININE 0.5 mg/dL (0.6-1.0); GLUCOSE 83 mg/dL (70-105); UREA NITROGEN BLOOD 7 mg/dL (9-23)
[2024-02-29 08:11] LABS: PHOSPHORUS 3.1 mg/dL (2.5-4.9)
[2024-02-29] MEDS: BUDESONIDE 0.5MG/2ML NEB HHN SCH (08:16)
[2024-02-29] MEDS ORDERED: MEDICATION NOT ON FORMULARY EA (Tiotropium Bromide (Spiriva) 1 CAP) INH SCH (09:00)
[2024-02-29] MEDS: PIPERACILLIN/TAZO 3.375G/50ML 50 ML IV SCH (22:00)
[2024-03-01] VITALS (8 sets, daily range): BP systolic 94–120; BP diastolic 61–73; PULSE 70–100; RESP 18–20; TEMP 36.22512–37.11408; O2SAT 94–100
[2024-03-01 07:20] LABS: HEMOGLOBIN 12.1 g/dL (12.0-16.0); MEAN CORPUSCULAR HEMOGLOBIN 27.4 pg (28.0-32.0); MEAN CORPUSCULAR HGB CONC 31.9 g/dL (31.0-37.0); MEAN CORPUSCULAR VOLUME 85.7 fL (81.0-99.0); PLATELET 387 x1000/uL (130-400); RED BLOOD CELL COUNT 4.44 mill/uL (4.2-5.4); RED CELL DISTRIBUTION WIDTH 16.3 % (11.6-14.6); WHITE BLOOD COUNT 13.8 x1000/uL (4.5-11.0)
[2024-03-01 07:38] LABS: CARBON DIOXIDE 23 mEq/L (21-32); CHLORIDE 105 mEq/L (98-107); POTASSIUM 3.7 mEq/L (3.5-5.1); SODIUM 139 mEq/L (136-145)
[2024-03-01 07:39] LABS: CALCIUM 9.6 mg/dL (8.7-10.4)
[2024-03-01 07:42] LABS: CREATININE 0.5 mg/dL (0.6-1.0)
[2024-03-01 07:43] LABS: GLUCOSE 82 mg/dL (70-105)
[2024-03-01 07:44] LABS: UREA NITROGEN BLOOD 7 mg/dL (9-23)
[2024-03-01] MEDS: MORPHINE SULFATE 2 MG/ML INJ (NOT FOR IM USE) IV PRN (20:06)
[2024-03-02] VITALS (9 sets, daily range): BP systolic 93–109; BP diastolic 68–77; PULSE 60–110; RESP 18–24; TEMP 36.05844–37.05852; O2SAT 95–100
[2024-03-02 07:57] LABS: HEMATOCRIT 36.3 % (36.0-48.0); HEMOGLOBIN 11.5 g/dL (12.0-16.0); MEAN CORPUSCULAR HEMOGLOBIN 27.2 pg (28.0-32.0); MEAN CORPUSCULAR HGB CONC 31.8 g/dL (31.0-37.0); MEAN CORPUSCULAR VOLUME 85.5 fL (81.0-99.0); PLATELET 412 x1000/uL (130-400); RED BLOOD CELL COUNT 4.24 mill/uL (4.2-5.4); RED CELL DISTRIBUTION WIDTH 15.8 % (11.6-14.6); WHITE BLOOD COUNT 11.2 x1000/uL (4.5-11.0)
[2024-03-02 08:16] LABS: CALCIUM 9.4 mg/dL (8.7-10.4); CHLORIDE 105 mEq/L (98-107); POTASSIUM 3.9 mEq/L (3.5-5.1); SODIUM 140 mEq/L (136-145)
[2024-03-02 08:17] LABS: CARBON DIOXIDE 26 mEq/L (21-32)
[2024-03-02 08:22] LABS: CREATININE 0.5 mg/dL (0.6-1.0); GLUCOSE 96 mg/dL (70-105); UREA NITROGEN BLOOD 6 mg/dL (9-23)
[2024-03-02 08:24] LABS: PHOSPHORUS 2.9 mg/dL (2.5-4.9)
[2024-03-02] MEDS ORDERED: P20 PO (14:23)
[2024-03-02] MEDS ORDERED: IPRA3AMP9 HHN (14:35)
[2024-03-02] MEDS ORDERED: THEO400C PO (14:35)
[2024-03-02] MEDS ORDERED: IBUP-2029 MT (16:51)
[2024-03-04 20:00] VITALS: BP 103/74; PULSE 91; RESP 18; TEMP 36.55848; O2SAT 98
== END 2024-03-02 19:22 | disposition home health service (06) | DRG 710 ==
LOC: ER 10:43 → 5EST 16:25 → UNDODISIN 18:01 → CVICU 20:56 → 6WST 02-20 19:37 → 6EST 02-20 20:06 → 7WST 03-01 15:36
PROVIDERS: ADMIT Hospitalist; ATTEND Hospitalist
PROC: 0DQ60ZZ Repair Stomach, Open Approach (ICD-10-PCS; principal; 2024-02-19)
PROC: 0W9B3ZZ Drainage of Left Pleural Cavity, Percutaneous Approach (ICD-10-PCS; 2024-02-23)
PROC: 0W993ZZ Drainage of Right Pleural Cavity, Percutaneous Approach (ICD-10-PCS; 2024-02-29)
DX: A41.9 Sepsis, unspecified organism (principal); J96.01 Acute respiratory failure with hypoxia; K25.5 Chronic or unspecified gastric ulcer with perforation; K65.9 Peritonitis, unspecified; J90 Pleural effusion, not elsewhere classified; J18.9 Pneumonia, unspecified organism; K76.89 Other specified diseases of liver; J44.0 Chronic obstructive pulmonary disease with (acute) lower respiratory infection; F12.10 Cannabis abuse, uncomplicated; E87.6 Hypokalemia; E83.42 Hypomagnesemia; Z79.899 Other long term (current) drug therapy; Z87.891 Personal history of nicotine dependence; Z87.442 Personal history of urinary calculi; Z88.5 Allergy status to narcotic agent
CPT/HCPCS: 32555; 36415; 71045; 71250; 74177; 76604; 80048; 80053; 80061; 81003; 82040; 82248; 82550; 82553; 83605; 83615; 83735; 84100; 84145; 84155; 84439; 84443; 84484; 85014; 85018; 85025; 85027; 86850; 86900; 88108; 88312; 93005; 93970; 94640; 97116; 97162; 97166; 97530; 99291; C1893; J0696; J1170; J1650; J1885; J2250; J2270; J2405; J2470; J2543; J2704; J3010; J3411; J3475; J3480; J3490; J7030; J7050; J7060; J7120; J7626; Q9967